=== PATIENT | female | born 1960 | race Caucasian/White ===

== ENCOUNTER → 2023-07-09 10:54 | Outpatient (REF) | payer MEDICARE, OTHER, SELFPAY ==
[2023-07-09 11:34] LABS: % Basophils 1.6 % (0-2); % Eosinophils 1.9 % (0-6); % Immature Granulocytes 0.3 % (0-0.5); % Lymphocytes 23.8 % (20.5-51.1); % Monocytes 11.1 % (1.7-9.3); % Neutrophils 61.3 % (42.2-75.2); Absolute Basophils 0.1 10^3/uL (0-0.2); Absolute Eosinophils 0.1 10^3/uL (0-0.7); Absolute Lymphocytes 0.8 10^3/uL (1.2-3.4); Absolute Monocytes 0.4 10^3/uL (0.1-0.6); Absolute Neutrophils 1.9 10^3/uL (1.4-6.5); Hematocrit 39.1 % (37.0-47.0); Hemoglobin 13.3 g/dL (12.0-16.0); Mean Corpuscular Hgb 30.6 pg (27.0-31.0); Mean Corpuscular Volume 89.9 fL (81.0-99.0); Mean Platelet Volume 9.7 fL (7.4-10.4); Nucleated Red Blood Cells % 0 %; Platelet Count 158 10^3/uL (130-400); Red Blood Cell Count 4.35 10^6/uL (4.20-5.40); Red Cell Dist. Width 12.8 % (11.5-14.5); White Blood Cell Count 3.2 10^3/uL (4.8-10.8)
[2023-07-09 12:11] LABS: ALT (SGPT) 15 U/L (0-35); AST (SGOT) 25 U/L (14-36); Albumin 3.9 g/dl (3.5-5.0); Alkaline Phosphatase 85 U/L (38-126); Blood Urea Nitrogen 18 mg/dl (7-17); Calcium 9.1 mg/dl (8.4-10.2); Carbon Dioxide 27 mmol/L (22-30); Chloride 109 mmol/L (98-107); Glucose 90 mg/dl (70-99); HDL Cholesterol 86 mg/dl; LDL Cholesterol, Calculated 75 mg/dl; Potassium 4.2 mmol/L (3.5-5.1); Sodium 139 mmol/L (135-145); Total Bilirubin 0.7 mg/dl (0.2-1.3); Total Cholesterol 175 mg/dl (50-199); Total Protein 6.4 g/dl (6.3-8.2); Triglyceride 73 mg/dl (10-149); Very Low Density Lipoprotein 14 mg/dl (0-30); eGFR 57.17
== END ==
LOC: REG 10:54
PROVIDERS: ATTENDING PHYSICIAN Family Medicine
DX: D72.819 Decreased white blood cell count, unspecified (principal); R41.3 Other amnesia; R26.89 Other abnormalities of gait and mobility; E78.5 Hyperlipidemia, unspecified; F32.1 Major depressive disorder, single episode, moderate; E78.00 Pure hypercholesterolemia, unspecified; Z79.899 Other long term (current) drug therapy
CPT/HCPCS: 36415; 80053; 80061; 85025

== ENCOUNTER → 2023-08-12 17:03 | Outpatient (REF) | payer MEDICARE, OTHER, SELFPAY | LOC: WDC 17:03 | PROVIDERS: ATTENDING PHYSICIAN Family Medicine | DX: Z12.31 Encounter for screening mammogram for malignant neoplasm of breast (principal) | CPT/HCPCS: 77063; 77067 ==

== ENCOUNTER 2024-06-22 06:26 | Day surgery (SDC) | payer MEDICARE, OTHER, SELFPAY | END 2024-06-22 14:53 | disposition home or self-care (01) | LOC: GI 06:26 | PROVIDERS: ATTENDING PHYSICIAN Internal Medicine Gastroenterology | DX: Z12.11 Encounter for screening for malignant neoplasm of colon (principal); K57.30 Diverticulosis of large intestine without perforation or abscess without bleeding; D12.4 Benign neoplasm of descending colon; D12.0 Benign neoplasm of cecum; R12 Heartburn; R13.14 Dysphagia, pharyngoesophageal phase; K22.2 Esophageal obstruction; K44.9 Diaphragmatic hernia without obstruction or gangrene; K31.7 Polyp of stomach and duodenum; Z86.0101 Personal history of adenomatous and serrated colon polyps | CPT/HCPCS: 43249; 45385; 43239; 88305 ==

== ENCOUNTER → 2024-12-10 09:38 | Outpatient (REF) | payer MEDICARE, OTHER, SELFPAY | LOC: WDC 09:38 | PROVIDERS: ATTENDING PHYSICIAN Family Medicine | DX: Z12.31 Encounter for screening mammogram for malignant neoplasm of breast (principal) | CPT/HCPCS: 77063; 77067 ==